=== PATIENT | female | born 1955 | race Caucasian/White ===

== ENCOUNTER 2017-02-04 06:25 | Inpatient (IN) | payer BC ==
[2017-02-04] MEDS ORDERED: ASPIRIN 325 MG TABLET PO ONE (06:42)
--- NOTE | 2017-02-04 06:44 | ER Document Report ---
ED Cardiac - General Chief Complaint: Chest Pain > 30 Stated Complaint: CHEST PAIN Time Seen by Provider: 02/04/17 06:38 Notes: The patient is a 72-[id number]-fmw-year-old female, past medical history hypertension , current smoker, cervical cancer in 2006 treated with radiation, presents with 2 hours of substernal chest pressure that started at rest. She said her left arm also feels "funny", but denies numbness or pain. Patient has never had chest pain like this before. She took 800 mg ibuprofen prior to arrival. She was also having mild shortness of breath during this episode, but this has improved. Denies fevers, cough, leg swelling, back pain, numbness, tingling, injury, abdominal pain, nausea or vomiting. TRAVEL OUTSIDE OF THE [place] IN LAST 30 DAYS: No - Related Data Allergies/Adverse Reactions: No Known Allergies Allergy (Unverified 02/04/17 06:28) Past Medical History - General Information source: Patient - Social History Smoking Status: Current Every Day Smoker Family History: Reviewed & Not Pertinent Patient has suicidal ideation: No Patient has homicidal ideation: No Renal/ Medical History: Denies: Hx Peritoneal Dialysis Review of Systems - Review of Systems Notes: REVIEW OF SYSTEMS: CONSTITUTIONAL: -fevers, -chills EENT: -eye pain, -difficulty swallowing, -nasal congestion CARDIOVASCULAR: +chest pain, -syncope. RESPIRATORY: -cough, +SOB GASTROINTESTINAL: -abdominal pain, -nausea, -vomiting, -diarrhea GENITOURINARY: -dysuria, -hematuria MUSCULOSKELETAL: -back pain, -neck pain SKIN: -rash or skin lesions. HEMATOLOGIC: -easy bruising or bleeding. LYMPHATIC: -swollen, enlarged glands. NEUROLOGICAL: -altered mental status or loss of consciousness, -headache, - neurologic symptoms PSYCHIATRIC: -anxiety, -depression. ALL OTHER SYSTEMS REVIEWED AND NEGATIVE. Physical Exam - Vital signs Vitals: Temp Pulse Resp BP Pulse Ox 97.5 F 86 26 H 180/70 H 98 02/04/17 06:31 02/04/17 06:31 02/04/17 06:31 02/04/17 06:31 02/04/17 06:31 - Notes Notes: PHYSICAL EXAMINATION: GENERAL: Well-appearing, well-nourished and in no acute distress. HEAD: Atraumatic, normocephalic. EYES: Pupils equal round and reactive to light, extraocular movements intact, sclera anicteric, conjunctiva are normal. ENT: nares patent, oropharynx clear without exudates. Moist mucous membranes. NECK: Normal range of motion, supple without lymphadenopathy LUNGS: Breath sounds clear to auscultation bilaterally and equal. No wheezes rales or rhonchi. HEART: Regular rate and rhythm with systolic ejection murmur ABDOMEN: Soft, nontender, normoactive bowel sounds. No guarding, no rebound. No masses appreciated. EXTREMITIES: Normal range of motion, no pitting or edema. No cyanosis. NEUROLOGICAL: Cranial nerves grossly intact. Normal speech, normal gait. Normal sensory and motor exams. PSYCH: Normal mood, normal affect. SKIN: Warm, Dry, normal turgor, no rashes or lesions noted. Course - Re-evaluation Re-evalutation: Patient's chest pain resolved when she was taken back to her room. While waiting for the results of the labs, her chest pain returned and quickly resolved after nitro. Her HEART score is 7 (1 for age, 2 for risk factors, 2 for concerning story, 2 for EKG). She is low risk for PE, but unable to PERC out due to age and tachypnea. Her d-dimer is negative, so PE is very unlikely. Symptoms not consistent with aortic dissection at this time. She does not have a primary care physician and has not seen a doctor in 10 years. 02/04/17 08:[address] Malik and will admit patient to Tele Obs. - Vital Signs Vital signs: Temp Pulse Resp BP Pulse Ox 97.5 F 86 16 153/76 H 97 02/04/17 06:31 02/04/17 06:31 02/04/17 07:00 02/04/17 06:44 02/04/17 07:00 - Laboratory Result Diagrams: 02/04/17 07:03 02/04/17 07:49 Laboratory results interpreted by me: 02/04/17 02/04/17 07:03 07:49 WBC 10.7 H Glucose 115 H CXR: NAD - Diagnostic Test Radiology reviewed: Image reviewed, Reports reviewed Radiology results interpreted by me: CXR: NAD - EKG Interpretation by Me EKG shows normal: Sinus rhythm, [place], Intervals, QRS Complexes Rate: Normal When compared to previous EKG there are: Previous EKG unavailable Additional EKG results interpreted by me: [address] depressions in lateral leads, no STEMI Discharge - Discharge Clinical Impression: Chest pain Qualifiers: Chest pain type: unspecified Qualified Code(s): R07.9 - Chest pain, unspecified Condition: Stable Disposition: ADMITTED OBSERVATION [facility] Admitted: Telemetry
[2017-02-04 07:12] LABS: ABSOLUTE BASOPHILS # (AUTO) 0.1 10^3/uL (0.0-0.2); ABSOLUTE EOSINOPHILS # (AUTO) 0.2 10^3/uL (0.0-0.6); ABSOLUTE LYMPHOCYTES (AUTO) 1.7 10^3/uL (0.5-4.7); ABSOLUTE MONOCYTES (AUTO) 0.8 10^3/uL (0.1-1.4); BASOPHILS % (AUTO) 0.7 % (0-2); EOSINOPHILS % (AUTO) 1.6 % (0-6); HEMATOCRIT 42.4 % (36.0-47.0); HGB HCT DIFFERENCE 2.6; LYMPHOCYTES % (AUTO) 15.4 % (13-45); MEAN CORPUSCULAR HEMOGLOBIN 32.1 pg (27.0-33.4); MEAN CORPUSCULAR HGB CONC 35.3 g/dL (32.0-36.0); MEAN CORPUSCULAR VOLUME 91 fl (80-97); MONOCYTES % (AUTO) 7.8 % (3-13); RED BLOOD COUNT 4.66 10^6/uL (3.72-5.28); SEGMENTED NEUTROPHILS % (AUTO) 74.5 % (42-78); WHITE BLOOD COUNT 10.7 10^3/uL (4.0-10.5)
--- NOTE | 2017-02-04 07:18 | RADIOLOGY REPORT (SQ) ---
EXAM DESCRIPTION: CHEST SINGLE VIEW COMPLETED DATE/TIME: 02/04/2017 7:08 am REASON FOR STUDY: SOB COMPARISON: None. EXAM PARAMETERS: NUMBER OF VIEWS: One view. TECHNIQUE: Single frontal radiographic view of the chest acquired. RADIATION DOSE: NA LIMITATIONS: None. FINDINGS: LUNGS AND PLEURA: No opacities, masses or pneumothorax. No pleural effusion. MEDIASTINUM AND HILAR STRUCTURES: No masses. Contour normal. HEART AND VASCULAR STRUCTURES: Heart normal in size. Normal vasculature. BONES: No acute findings. HARDWARE: None in the chest. OTHER: No other significant finding. IMPRESSION: NO ACUTE RADIOGRAPHIC FINDING IN THE CHEST. TECHNICAL DOCUMENTATION: JOB ID: [id number]
[2017-02-04] MEDS ORDERED: NITROGLYCERIN 0.4 MG/TAB 25 TAB/BOTTLE SL PRN ×2 (07:26→08:06)
[2017-02-04 08:17] LABS: ALANINE AMINOTRANSFERASE 23 U/L (9-52); ALBUMIN 4.3 g/dL (3.5-5.0); ALKALINE PHOSPHATASE 77 U/L (38-126); ANION GAP 11 (5-19); ASPARTATE AMINO TRANSFERASE 14 U/L (14-36); BILIRUBIN,DIRECT 0.4 mg/dL (0.0-0.4); BILIRUBIN,TOTAL 0.6 mg/dL (0.2-1.3); BLOOD UREA NITROGEN 17 mg/dL (7-20); CALCIUM 9.9 mg/dL (8.4-10.2); CARBON DIOXIDE 24 mmol/L (22-30); CHLORIDE 104 mmol/L (98-107); CREATINE KINASE 36 U/L (30-135); CREATININE RESULT 0.63 mg/dL (0.52-1.25); GLUCOSE 115 mg/dL (75-110); LIPASE 95.8 U/L (23-300); POTASSIUM 4.2 mmol/L (3.6-5.0); SODIUM 139.3 mmol/L (137-145)
[2017-02-04 08:32] LABS: TROPONIN I 0.041 ng/mL
[2017-02-04] MEDS ORDERED: ONDANSETRON HCL INJ/PF 4 MG/2 ML SDV IV PRN (09:32)
[2017-02-04] MEDS ORDERED: METOPROLOL TARTRATE 25 MG TABLET PO SCH (10:00)
[2017-02-04] MEDS ORDERED: ISOSORBIDE MONONITRATE 60 MG TAB.ER.24H PO SCH (10:00)
[2017-02-04] MEDS: ISOSORBIDE MONONITRATE 30 MG TAB.ER.24H PO SCH (11:07)
--- NOTE | 2017-02-04 11:43 | PDOC CONSULTATION ---
Consultation Consult Date: 02/04/17 Attending physician:: JV CONTEH Consult reason:: Chest pain History of Present Illness Admission Date/PCP: 02/04/17 09:32 Patient complains of: Chest pain History of Present Illness: The patient is a 12-qshq-xfj-year-old female, past medical history hypertension , current smoker, cervical cancer in 2006 treated with radiation, presents to the emergency department and subsequently admitted with 2 hours of substernal chest pressure that started at rest. She said her left arm also feels "funny", but denies numbness or pain. Patient has never had chest pain like this before. She took 800 mg ibuprofen prior to arrival. She was also having mild shortness of breath during this episode, but this has improved. Denies fevers, cough, leg swelling, back pain, numbness, tingling, injury, abdominal pain, nausea or vomiting. Patient denied any prior history of myocardial infarction, angina, congestive heart failure or any prior heart problem. Patient denied any history of blood clots in the legs are in the lungs. Past Medical History Malignancy Medical History: Reports: Cervical Cancer - Treated with radiation Psychiatric Medical History: Reports: Tobacco Dependency Past Surgical History Past Surgical History: Reports: Other - Cervical cancer treated with radiation Social History Information Source: Patient Smoking Status: Current Every Day Smoker - Currently smokes 2 packs or more per day - Advance Directive Resuscitation Status: Full Code Surrogate healthcare decision maker:: Patient's neighbor and good friend. Name been listed in the chart Family History Family History: Reviewed & Not Pertinent Parental Family History Reviewed: Yes Children Family History Reviewed: Yes Sibling(s) Family History Reviewed.: Yes - Coronary artery disease in grandmother but not in the immediate family. Medication/Allergy Home Medications: Aspirin [Aspirin 81 mg Chewable Tablet] 81 mg PO DAILY tab.chew 02/07/17 Atorvastatin Calcium [Lipitor 80 mg Tablet] 80 mg PO QHS #30 tablet 02/07/17 Metoprolol Succinate [Toprol Xl 25 mg Tab.sr] 25 mg PO Q12 #60 tab.sr.24h Nitroglycerin [Nitrostat 0.4 mg (1/150 Gr) Tabs 25/Bottle] 1 tab SL Q5MP PRN #1 bottle 02/07/17 Ramipril [Altace 1.25 mg Capsule] 1.25 mg PO DAILY #30 capsule 02/07/17 Ranolazine [Ranexa 500 mg Tab.sr] 1,000 mg PO Q12 #60 tab.sr.12h 02/07/17 Allergies/Adverse Reactions: No Known Allergies Allergy (Unverified 02/04/17 06:28) Review of Systems Review of Systems: Please see history of present illness and past medical history as wall. Constitutional: No fever or chills reported. Head : No recent chronic headaches, recent head injury. Eyes: No recent eye pain, diplopia, redness, discharge, acute visual changes. Ears: No recent chronic ear pain, acute hearing loss, ear discharge. Oral cavity: No recent ulcerations, bleeding, oral cavity discomfort. Neck: No recent acute neck pain reported. Hematologic: No recent easy bruising or bleeding or hematologic malignancy reported. Lymphatic: No recent lymphatic malignancy, chronic lymphadenopathy reported yet Cardiovascular system review: See history of present illness. Respiratory system review: Chronic cough secondary to smoking but no hemoptysis , blood clots in the lungs reported. Mild Shortness of breath on exertion Gastrointestinal system review: Negative for any recent acute or chronic abdominal pain, hematemesis, melena, recent change in bowel habits. Genitourinary system review: No recent acute or chronic hematuria, flank pain, UTI etc. reported. Skin system review: Negative for any recent abnormal bruising, no rash, no pruritus reported. Neurologic: No prior history of strokes, mini strokes, seizure disorder. Psychologic: No history of major psychosis or major depression reported. Musculoskeletal: Minor aches and pains reported. No acute joint swelling reported. Endocrine: No recent polyuria, polydipsia, recent heat or cold intolerance. Physical Exam Vital Signs: Temp Pulse Resp BP Pulse Ox 97.4 F 89 19 98/62 L 97 02/04/17 10:43 02/04/17 10:43 02/04/17 10:43 02/04/17 10:43 02/04/17 10:43 Exam: GENERAL: well-nourished and in no acute distress. Alert and oriented x3 HEAD: Atraumatic, normocephalic. EYES: Pupils equal round and reactive to light, extraocular movements intact, sclera anicteric, conjunctiva are normal. ENT: TMs normal, nares patent, oropharynx clear without exudates. Moist mucous membranes. No oral ulcerations or bleeding gums noted NECK: supple without lymphadenopathy. Trachea is central. No cervical or axillary lymphadenopathy noted. Carotids are 2+, JVD WNL LUNGS: Respiration seems nonlabored, no significant accessory muscle action noted. Breath sounds clear to auscultation bilaterally and equal noted. No wheezes rales or rhonchi noted. No significant dullness noted on percussion. CHEST: Palpation of the chest wall shows no significant chest wall tenderness. No other significant abnormalities noted. 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 ABDOMEN: Soft, no significant tenderness appreciated, normoactive bowel sounds. No guarding, no rebound. No rigidity noted . No masses appreciated. EXTREMITIES: Pedal pulses are 1-2+, no calf tenderness noted. No clubbing or cyanosis. Negative pedal edema noted NEUROLOGICAL: Focused neurological exam showed no significant neurologic deficit. Normal speech, no focal weakness appreciated. PSYCH: Normal mood, normal affect. Judgment and insight within normal limits. SKIN: No significant ecchymosis, rash, ulcerations or signs of pruritus noted. MUSCULOSKELETAL EXAM: No significant joint swelling noted. Results EKG Comments: Sinus rhythm, minor nonspecific T-wave inversion noted in V2 Impressions: Chest X-Ray 02/04/17 06:41 IMPRESSION: NO ACUTE RADIOGRAPHIC FINDING IN THE CHEST. Assessment & Plan - Diagnosis (1) Chest pain Qualifiers: Chest pain type: unspecified Qualified Code(s): R07.9 - Chest pain, unspecified Is this a current diagnosis for this admission?: Yes (2) COPD (chronic obstructive pulmonary disease) Qualifiers: COPD type: unspecified COPD Qualified Code(s): J44.9 - Chronic obstructive pulmonary disease, unspecified Is this a current diagnosis for this admission?: Yes (3) Tobacco abuse Is this a current diagnosis for this admission?: Yes (4) Gastroesophageal reflux Qualifiers: Esophagitis presence: esophagitis presence not specified Qualified Code(s): K21.9 - Gastro-esophageal reflux disease without esophagitis Is this a current diagnosis for this admission?: Yes - Notes Notes: Chest pain: Patient has some typical and atypical features of chest pain. Cardiac enzymes so far has been negative. Electrocardiogram did not show any definitive ST segment changes. Multiple differential diagnoses exist in this patient. In descending order of probability this includes underlying coronary artery disease, gastroesophageal reflux, musculoskeletal pain, referred pain from elsewhere, anxiety panic disorder etc.Patient has significant cardiac risk factors, which indicates that there is a intermediate probability of chest discomfort coming from underlying CAD. Feel that it would need to be evaluated further. Discussed evaluation to assess this. In this regard risk benefits of nuclear stress test and other alternative processes were discussed in detail. The patient prefers to undergo nuclear stress test. The small risk of radiation , myocardial infarction, , cardiac arrhythmias, respiratory distress etc. were discussed. Patient understood the risks and gave informed consent. Nuclear stress test was therefore scheduled. For risk evaluation, patient is also being scheduled for a 2-D echocardiogram. Patient questions were answered. COPD patient encouraged to avoid first-hand. Patient also advised to avoid environmental pollutants. Patient to use bronchodilator and steroid therapy as has been prescribed by PMD and other specialists. Tobacco abuse: Patient has history of chronic smoking. Discussed detrimental effect of chronic smoking including worsening COPD, increased risk of cardiovascular events, cerebrovascular events, cancer and multiple other side effects of smoking. The benefits of smoking cessation discussed. Patient unwilling to give acommitment to quit. Patient informed that we'll be happy to help should pt decide to quit. Continue nicotine patch while inpatient. Patient seems to have this condition. Gastroesophageal reflux: Weigh loss and treatment of sleep apnea if present and when treated tends to help this condition. Recommend small meals, avoid eating within 3 hours of bedtime, avoid other food substances which had led to reflux in the past. Proton pump inhibitors and other antacids are recommended. - Time Time Spent: 50 to 70 Minutes - CODE STATUS was discussed, patient remains full code. Surrogate decision-maker unchanged. Multiple medical problems were addressed. More than 50% of the time spent coordinating care, discussing management plans with involved caregivers. Management plans discussed with involved personnels. Medical decision making was of high complexity, patient' s has multiple comorbidities. Medications reviewed and adjusted accordingly: Yes
[2017-02-04] MEDS ORDERED: ENOXAPARIN SODIUM INJ 40 MG/0.4 ML DISP.SYRIN SUBCUT ONE (12:00)
[2017-02-04 12:27] LABS: CHOLESTEROL 176.24 mg/dL (0-200); Direct HDL 33 mg/dL (>40); TRIGLYCERIDES 233 mg/dL (<150)
[2017-02-04 12:34] LABS: CREATINE KINASE MB 1.07 ng/mL (<4.55)
[2017-02-04 12:38] LABS: DIRECT LDL 106 mg/dL (<100); TROPONIN I 0.15 ng/mL
[2017-02-04 12:40] LABS: VLDL CHOLESTEROL 46.6 mg/dL (10-31)
[2017-02-04] MEDS ORDERED: CLOPIDOGREL BISULFATE 75 MG TABLET PO ONE (14:00)
--- NOTE | 2017-02-04 14:00 | PDOC H&P ---
History of Present Illness Admission Date/PCP: 02/04/17 09:32 no PCP Patient complains of: chest pain History of Present Illness: presents to the ED from home with sudden onset of substernal constant chest pain until given SL NTG, described as a "heaviness in the center of my chest" with asct'ed left arm "weirdness like a tingling but stranger" and global dull aching constant nonradiating CRUZ and mild, transient SOA. she denies nausea, vomiting, vision or hearing changes, orthopnea, PND, weight gain or loss, cough with phlegm, fevers/chills, swelling of her feet or ankles, recent travel, sedentary lifestyle, heartburn or GERD. She's had several similar episodes over the last few months but "never this intense" thus prompting visit to the ED. She had a negative stress test "many years ago" for unrelated symptoms so no prior cardiac disease she is aware of, takes no meds for chronic conditions, has no idea of her cholesterol levels, doesn't take prophylactic ASA and no first degree relative with CAD. Her risk factors include elevated BMI and heavy tobacco use. eval in the ED shows nonspecific, nondiagnostic ST flattening, we have no old for comparison, and indeterminate initial troponin that fails to reach the cut off for NSTEMI by our scale giving her a MARS score of 2. we were asked to admit for further eval and management Past Medical History Cardiac Medical History: Reports: None Pulmonary Medical History: Reports: Pneumonia - WITH PLURISY Malignancy Medical History: Reports: Cervical Cancer - Treated with radiation Psychiatric Medical History: Reports: Tobacco Dependency Past Surgical History Past Surgical History: Reports: None, Other - Cervical cancer treated with radiation Social History Information Source: Patient Smoking Status: Current Every Day Smoker - Currently smokes 2 packs or more per day Cigarettes Packs Per Day: 2 Frequency of Alcohol Use: Rare Hx Recreational Drug Use: No Hx Prescription Drug Abuse: No - Advance Directive Resuscitation Status: Full Code Family History Family History: Reviewed & Not Pertinent. denies: CAD, CVA Parental Family History Reviewed: Yes Children Family History Reviewed: Yes Sibling(s) Family History Reviewed.: Yes Medication/Allergy Home Medications: No Home Medications 02/04/17 Allergies/Adverse Reactions: No Known Allergies Allergy (Unverified 02/04/17 06:28) Review of Systems All systems: reviewed and no additional remarkable complaints except as stated - all systems reviewed, see HPI, remaining systems negative Physical Exam Vital Signs: Temp Pulse Resp BP Pulse Ox 97.4 F 89 19 98/62 L 97 02/04/17 10:43 02/04/17 10:43 02/04/17 10:43 02/04/17 10:43 02/04/17 10:43 General appearance: PRESENT: no acute distress, obese, well-developed, well- nourished Head exam: PRESENT: atraumatic, normocephalic Eye exam: PRESENT: EOMI. ABSENT: conjunctival injection, scleral icterus Mouth exam: PRESENT: moist, neck supple Neck exam: PRESENT: full ROM. ABSENT: JVD, lymphadenopathy Respiratory exam: PRESENT: clear to auscultation sohan. ABSENT: accessory muscle use Cardiovascular exam: PRESENT: RRR. ABSENT: systolic murmur Pulses: PRESENT: normal radial pulses, normal dorsalis pedis pul Vascular exam: PRESENT: normal capillary refill GI/Abdominal exam: PRESENT: normal bowel sounds, soft. ABSENT: tenderness Extremities exam: ABSENT: calf tenderness, pedal edema Musculoskeletal exam: PRESENT: ambulatory, full ROM Neurological exam: PRESENT: alert, awake, oriented to person, oriented to place , oriented to time, oriented to situation Psychiatric exam: PRESENT: appropriate affect, normal mood Skin exam: PRESENT: dry, warm. ABSENT: rash Results Laboratory Results: 02/04/17 11:52 Triglycerides 233 H Cholesterol 176.24 LDL Cholesterol Direct 106 H VLDL Cholesterol 46.6 H HDL Cholesterol 33 L 02/04/17 11:52 CK-MB (CK-2) 1.07 Troponin I 0.150 EKG Comments: NSR with nonspecific ST flattening lateral leads and TWI V2 Impressions: Chest X-Ray 02/04/17 06:41 IMPRESSION: NO ACUTE RADIOGRAPHIC FINDING IN THE CHEST. Status: Image reviewed by me - agree with rads Assessment & Plan - Diagnosis (1) Chest pain Qualifiers: Chest pain type: unspecified Qualified Code(s): R07.9 - Chest pain, unspecified Is this a current diagnosis for this admission?: YesPlan: unclear etiology but worthy of admission for telemetry monitoring and serial cardiac enzymes and ecgs with cardiology consult given the indeterminate troponin and risk factors. will empirically treat with ASA and nitro, hold beta blockers in anticipation of nuclear stress test in the morning. further risk stratification per clinical course. ck lipids and monitor BP. (2) Tobacco abuse Is this a current diagnosis for this admission?: YesPlan: tobacco cessation counseling; nicoderm replacement once she completes her stress test. - Time Time Spent: 50 to 70 Minutes Medications reviewed and adjusted accordingly: Yes Anticipated discharge: Home Within: within 24 hours
[2017-02-04] MEDS ORDERED: ENOXAPARIN SODIUM INJ 60 MG/0.6 ML DISP.SYRIN SUBCUT ONE (15:00)
[2017-02-04] MEDS: LANSOPRAZOLE 30 MG TAB.RAP.DR PO SCH (17:00)
[2017-02-04] MEDS: ACETAMINOPHEN 325 MG TABLET PO PRN ×2 (17:01→22:54)
--- NOTE | 2017-02-04 17:40 | EKG REPORT ---
SEVERITY:- ABNORMAL ECG - SINUS RHYTHM CONSIDER ANTEROSEPTAL INFARCT : Confirmed by: Arlene Mendez MD 04-Feb-2017 17:38:43
--- NOTE | 2017-02-04 17:40 | EKG REPORT ---
SEVERITY:- NORMAL ECG - SINUS RHYTHM : Confirmed by: Arlene Mendez MD 04-Feb-2017 17:39:10
[2017-02-04 18:47] LABS: CREATINE KINASE MB 1.87 ng/mL (<4.55); TROPONIN I 0.259 ng/mL
--- NOTE | 2017-02-04 19:48 | XCELERA REPORT ---
[address] [address] Transthoracic Echocardiogram Report Name: ENRIQUE FARAH Age: 61 yrs Gender: Female : 1955 Patient Status: Inpatient Patient Location: [id number]\S\401\S\A Study Date: 02/04/2017 03:20 PM Height: 66 in Weight: 214 lb BSA: 2.1 m2 Procedure: A complete two-dimensional transthoracic echocardiogram was performed (2D, M-mode, spectral and color flow Doppler). The study was technically difficult with many images being suboptimal in quality. Reason For Study: CP Ordering Physician: ALMA WILKINS Performed By: Laverne Costa Interpretation Summary The study was technically difficult with many images being suboptimal in quality. The left ventricular ejection fraction is normal. Doppler measurements suggest pseudonormalized left ventricular relaxation, which is associated with grade II/IV or mild to moderate diastolic dysfunction There is mild concentric left ventricular hypertrophy. The left ventricle is grossly normal size. Wall motion cannot be accurately commented on, but no definite regional wall motion abnormalities noted. The right ventricular systolic function is normal. The right ventricle is grossly normal size. The left atrium is mildly dilated. The right atrium is normal in size There is a trace to mild amount of mitral regurgitation There is mild mitral stenosis There is a peak gradient of 25 mm of Hg. There is mild aortic stenosis No aortic regurgitation is present. There is a trace or physiologic amount of tricuspid regurgitation Tricuspid regurgitation jet envelope not well defined to measure RV systolic pressure accurately. The aortic root is not well visualized but is probably normal size. The inferior vena cava appeared normal and decreased > 50% with respiration (RAP 5-10 mmHg) There is no pericardial effusion. MMode/2D Measurements \T\ Calculations RVDd: 2.7 cm LVIDd: 4.5 cm FS: 49.4 % Ao root diam: 2.9 cm IVSd: 1.1 cm LVIDs: 2.3 cm EDV(Teich): 90.8 ml LVPWd: 1.1 cm ESV(Teich): 17.3 ml Ao root area: 6.4 cm2 EF(Teich): 80.9 % LA dimension: 4.2 cm LVOT diam: 2.1 cm LVOT area: 3.6 cm2 Doppler Measurements \T\ Calculations MV E max sari: MV V2 max: MV P1/2t max sari: Ao V2 max: 133.8 cm/sec 178.1 cm/sec 133.8 cm/sec 249.8 cm/sec MV A max sari: MV max PG: MV P1/2t: 101.1 msec Ao max P.1 cm/sec 12.7 mmHg MVA(P1/2t): 2.2 cm2 25.1 mmHg MV E/A: 0.90 MV V2 mean: MV dec slope: Ao V2 mean: 121.6 cm/sec 387.6 cm/sec2 181.4 cm/sec MV mean PG: Ao mean P.5 mmHg 13.9 mmHg MV V2 VTI: Ao V2 VTI: 60.8 cm 46.0 cm MVA(VTI): 2.1 cm2 IGNACIO(I,D): 2.8 cm2 IGNACIO(V,D): 2.3 cm2 LV V1 max PG: SV(LVOT): PA V2 max: TR max sari: 10.8 mmHg 127.0 ml 117.5 cm/sec 206.3 cm/sec LV V1 mean PG: PA max P.5 mmHg TR max P.1 mmHg 17.0 mmHg LV V1 max: 164.5 cm/sec LV V1 mean: 99.4 cm/sec LV V1 VTI: 35.7 cm Left Ventricle The left ventricle is grossly normal size. There is mild concentric left ventricular hypertrophy. The left ventricular ejection fraction is normal. Doppler measurements suggest pseudonormalized left ventricular relaxation, which is associated with grade II/IV or mild to moderate diastolic dysfunction. Wall motion cannot be accurately commented on, but no definite regional wall motion abnormalities noted. Right Ventricle The right ventricle is grossly normal size. The right ventricle appears to be hypertrophied. The right ventricular systolic function is normal. Atria The right atrium is normal in size. The left atrium is mildly dilated. Interarterial septum not well visualized and not well dopplered. Cannot comment on ASD/PFO presence. Mitral Valve There is moderate to severe mitral leaflet calcification. There is mild mitral stenosis. There is a trace to mild amount of mitral regurgitation. Aortic Valve The aortic valve is not well visualized secondary to technical limitations. There is mild aortic stenosis. There is a peak gradient of 25 mm of Hg. No aortic regurgitation is present. Tricuspid Valve The tricuspid valve is not well visualized, but is grossly normal. There is no tricuspid stenosis. There is a trace or physiologic amount of tricuspid regurgitation. Tricuspid regurgitation jet envelope not well defined to measure RV systolic pressure accurately. Pulmonic Valve The pulmonic valve is not well visualized. Great Vessels The aortic root is not well visualized but is probably normal size. The inferior vena cava appeared normal and decreased > 50% with respiration (RAP 5-10 mmHg). Effusions There is no pericardial effusion. : ALMA WILKINS > Alma Wilkins
--- NOTE | 2017-02-04 21:29 | Progress Note ---
Provider Note Provider Note: February 04, 2017: Gradual increase in patient's troponin level. Shortly after the beginning of the evening shift, I spoke with patient's floor nurse. She stated patient had been having some vague left shoulder discomfort. I subsequently discussed the matter by phone with Dr. Mckeon, who had already seen the patient. He stated he would be going to the patient's bedside and reevaluating her. At 7:58 PM, Dr. Mckeon called from patient's bedside. He stated that patient had taken a single sublingual nitroglycerin and was now discomfort free. He had reviewed her stat EKG, with no worrisome changes noted. He discussed options with patient, including possible transfer to a tertiary center. She is comfortable being at our facility at this point in time, as is Dr. Mckeon. Plans are to repeat her troponin in several hours. Dr. Mckeon stated that should patient develop chest pain, and/or troponin greater than 0.4, to consider transfer to a tertiary center.
[2017-02-04] MEDS ORDERED: ENOXAPARIN SODIUM INJ 100 MG/1 ML DISP.SYRIN SUBCUT SCH (22:00)
[2017-02-04] MEDS: ATORVASTATIN CALCIUM 80 MG TABLET PO SCH (22:55)
[2017-02-04] MEDS: RANOLAZINE 500 MG TAB.SR.12H PO SCH (22:56)
[2017-02-04] MEDS: ENOXAPARIN SODIUM INJ 100 MG/1 ML DISP.SYRIN SUBCUT SCH (22:57)
[2017-02-05] MEDS: ACETAMINOPHEN 325 MG TABLET PO PRN ×3 (03:35→18:03)
[2017-02-05 04:46] LABS: CHOLESTEROL 164.91 mg/dL (0-200); Direct HDL 30 mg/dL (>40); TRIGLYCERIDES 238 mg/dL (<150)
[2017-02-05 04:57] LABS: DIRECT LDL 101 mg/dL (<100)
[2017-02-05 05:01] LABS: VLDL CHOLESTEROL 47.6 mg/dL (10-31)
[2017-02-05] MEDS: LANSOPRAZOLE 30 MG TAB.RAP.DR PO SCH ×2 (06:02→18:04)
[2017-02-05] MEDS: ISOSORBIDE MONONITRATE 30 MG TAB.ER.24H PO SCH (09:20)
[2017-02-05] MEDS: CLOPIDOGREL BISULFATE 75 MG TABLET PO SCH (09:21)
[2017-02-05] MEDS: RANOLAZINE 500 MG TAB.SR.12H PO SCH ×2 (09:21→21:07)
[2017-02-05] MEDS: ENOXAPARIN SODIUM INJ 100 MG/1 ML DISP.SYRIN SUBCUT SCH ×2 (09:22→21:06)
[2017-02-05] MEDS ORDERED: ASPIRIN 325 MG TABLET, ENT COATED PO SCH (10:00)
[2017-02-05] MEDS ORDERED: ENOXAPARIN SODIUM INJ 40 MG/0.4 ML DISP.SYRIN SUBCUT SCH (10:00)
[2017-02-05 10:30] LABS: APPEARANCE,URINE CLEAR; BILIRUBIN,URINE NEGATIVE (NEGATIVE); GLUCOSE, URINE NEGATIVE (NEGATIVE); KETONES,URINE NEGATIVE (NEGATIVE); LEUKOCYTE ESTERASE,URINE NEGATIVE (NEGATIVE); NITRITE,URINE NEGATIVE (NEGATIVE); PROTEIN,URINE NEGATIVE (NEGATIVE); URINE SPECIFIC GRAVITY 1.002; UROBILINOGEN,URINE NEGATIVE mg/dL (<2.0)
--- NOTE | 2017-02-05 11:15 | RADIOLOGY REPORT (SQ) ---
EXAM DESCRIPTION: CTA CHEST COMPLETED DATE/TIME: 02/05/2017 10:56 am REASON FOR STUDY: chest pain COMPARISON: Recent chest radiographs. TECHNIQUE: CT scan of the chest performed using helical scanning technique with dynamic intravenous contrast injection. Images reviewed with lung, soft tissue and bone windows. Reconstructed coronal and sagittal MPR images reviewed. Additional 3 dimensional post-processing performed to develop Maximal Intensity Projection images (NE P). All images stored on PACS. All CT scanners at this facility use dose modulation, iterative reconstruction, and/or weight based d osing when appropriate to reduce radiation dose to as low as reasonably achievable (ALARA). [facility]: Dose Right [facility]: CareDose [facility]: Dose Right [facility]: Teradose 4D [facility]: piSociety CONTRAST TYPE AND DOSE: contrast/concentration: Isovue 370.00 mg/ml; Total Contrast Delivered: 74.0 ml; Total Saline Delivered: 110.1 ml RENAL FUNCTION: Creatinine 0.6 RADIATION DOSE: Up-to-date CT equipment and radiation dose reduction techniques were employed. CTDIv ol: 9.4 - 15.6 mGy. DLP: 646 mGy-cm. . LIMITATIONS: None. FINDINGS: LUNGS AND PLEURA: Mild apical emphysema. Lungs otherwise clear. No pleural disease. AORTA AND GREAT VESSELS: Limited evaluation due to phase of contrast. No aortic aneurysm. Mild athe rosclerotic plaque. No gross dissection. HEART: Coronary and valvular calcification. No pericardial effusion. Relatively normal size. PULMONARY ARTERIES: No emboli visualized in the main pulmonary arteries or the segmental branches. HILAR AND MEDIASTINAL STRUCTURES: Small hiatal hernia. No mediastinal adenopathy or mass. HARDWARE: None in the chest. UPPER ABDOMEN: Incompletely evaluated cholelithiasis. Slight nodular thickening of the left adrenal, particularly lateral limb. Low density suggests adenoma. Hounsfield units are less than 5. THYROID AND OTHER SOFT TISSUES: No masses. No adenopathy. BONES: No acute or significant finding. 3D MIPS: Confirm above findings. OTHER: No other significant finding. IMPRESSION: 1. No acute or suspicious thoracic findings. No pulmonary embolus or gross aortic aneur ysm or dissection. 2. Cholelithiasis. TECHNICAL DOCUMENTATION: JOB ID: [id number] Quality ID # [id number]: Final reports with documentation of one or more dose reduction techniques (e.g., Au tomated exposure control, adjustment of the mA and/or kV according to patient size, use of iterative reconstruction technique) 2010 [employer]- All Rights Reserved
[2017-02-05] MEDS: METOPROLOL SUCCINATE 25 MG TAB.SR.24H PO SCH ×2 (11:23→21:05)
--- NOTE | 2017-02-05 12:27 | PDOC PROGRESS REPORT ---
Subjective Progress Note for:: 02/05/17 Subjective:: reason for visit: chest pain, likely NSTEMI, tob abuse hospital course: presents to the ED from home with sudden onset of substernal constant chest pain until given SL NTG, described as a "heaviness in the center of my chest" with asct'ed left arm "weirdness like a tingling but stranger" and global dull aching constant nonradiating CRUZ and mild, transient SOA. she denies nausea, vomiting, vision or hearing changes, orthopnea, PND, weight gain or loss, cough with phlegm, fevers/chills, swelling of her feet or ankles, recent travel, sedentary lifestyle, heartburn or GERD. She's had several similar episodes over the last few months but "never this intense" thus prompting visit to the ED. She had a negative stress test "many years ago" for unrelated symptoms so no prior cardiac disease she is aware of, takes no meds for chronic conditions, has no idea of her cholesterol levels, doesn't take prophylactic ASA and no first degree relative with CAD. Her risk factors include elevated BMI and heavy tobacco use. eval in the ED shows nonspecific, nondiagnostic ST flattening, we have no old for comparison, and indeterminate initial troponin that fails to reach the cut off for NSTEMI by our scale giving her a MARS score of 2. we were asked to admit for further eval and management. repeat troponin trended up and beyond upper limit of normal and has plateaued while her symptoms remain vague and waxing and waning but no ousmane chest pain, palpitations, orthopnea, PND. her left arm "funny feeling" also seems to come and go and is currentlly resolved. dr tapia ordered echo and CTA chest which show normal EF, 2/4 DD, mild conc LVH, mild LAE, trace MR and mild stenosis, mild aortic stenosis and ct chest shows mild apical emphysema, coronary calcifications but no obvious dissection or aneurysm and incidental note made of cholelithiasis and adrenal adenoma. started empiric treatment for NSTEMI with full dose lovenox, plavix and high dose statin. denies chest pain, palpitations, n/v/d, arm/jaw pain. ROS: all systems reviewed, as noted, remaining systems negative Physical Exam Vital Signs: Temp Pulse Resp BP Pulse Ox 97.5 F 66 16 135/56 H 94 02/05/17 07:43 02/05/17 07:43 02/05/17 07:43 02/05/17 07:43 02/05/17 07:43 Intake & Output 02/04/17 02/05/17 02/06/17 06:59 06:59 06:59 Intake Total 1770 Output Total 501 Balance 1269 Weight 99.2 kg General appearance: PRESENT: no acute distress, obese, well-developed, well- nourished Head exam: PRESENT: atraumatic, normocephalic Eye exam: PRESENT: EOMI. ABSENT: conjunctival injection, scleral icterus Mouth exam: PRESENT: moist, neck supple Neck exam: PRESENT: full ROM. ABSENT: JVD, lymphadenopathy Respiratory exam: PRESENT: clear to auscultation sohan. ABSENT: accessory muscle use Cardiovascular exam: PRESENT: RRR. ABSENT: systolic murmur Pulses: PRESENT: normal radial pulses, normal dorsalis pedis pul Vascular exam: PRESENT: normal capillary refill GI/Abdominal exam: PRESENT: normal bowel sounds, soft. ABSENT: tenderness Extremities exam: ABSENT: calf tenderness, pedal edema Musculoskeletal exam: PRESENT: ambulatory, full ROM Neurological exam: PRESENT: alert, awake, oriented to person, oriented to place , oriented to time, oriented to situation Psychiatric exam: PRESENT: appropriate affect, normal mood Skin exam: PRESENT: dry, warm. ABSENT: rash Results Laboratory Results: 02/04/17 02/05/17 02/05/17 11:52 04:02 08:50 Triglycerides 233 H 238 H Cholesterol 176.24 164.91 LDL Cholesterol Direct 106 H 101 H VLDL Cholesterol 46.6 H 47.6 H HDL Cholesterol 33 L 30 L Urine Color STRAW Urine Appearance CLEAR Urine pH 6.0 Ur Specific Check 1.002 Urine Protein NEGATIVE Urine Glucose (UA) NEGATIVE Urine Ketones NEGATIVE Urine Blood NEGATIVE Urine Nitrite NEGATIVE Ur Leukocyte Esterase NEGATIVE Urine WBC (Auto) 2 02/04/17 02/04/17 02/04/17 11:52 17:58 22:03 CK-MB (CK-2) 1.07 1.87 Troponin I 0.150 0.259 0.225 02/05/17 04:02 CK-MB (CK-2) Troponin I 0.227 Impressions: Chest X-Ray 02/04/17 06:41 IMPRESSION: NO ACUTE RADIOGRAPHIC FINDING IN THE CHEST. Chest/Abdomen CTA 02/05/17 09:22 IMPRESSION: 1. No acute or suspicious thoracic findings. No pulmonary embolus or gross aortic aneurysm or dissection. 2. Cholelithiasis. Status: Imported from PACS Assessment & Plan - Diagnosis (1) Chest pain Qualifiers: Chest pain type: unspecified Qualified Code(s): R07.9 - Chest pain, unspecified Is this a current diagnosis for this admission?: Yes (2) Tobacco abuse Is this a current diagnosis for this admission?: Yes (3) NSTEMI (non-ST elevated myocardial infarction) Is this a current diagnosis for this admission?: YesPlan: new: dr tapia guiding her care and my discussions with her for >30mins regarding conservative medical mgt vs invasive intervention and she has decided for the more conservative approach, she is fearful of the procedure and "would like to give the medicines a chance to work" fully understanding and accepting of the risk of sudden cardiac , AMI, heart failure, etc continue to optimize Rx management. per my conversation with dr tapia, he will perform stress test in am if her troponin trending down, otherwise will need cath if trending up. (4) Hyperlipidemia Is this a current diagnosis for this admission?: YesPlan: new; high dose statin (5) Cholelithiasis Qualifiers: Cholelithiasis location: gallbladder Cholecystitis acuity: chronic Biliary obstruction: without biliary obstruction Is this a current diagnosis for this admission?: YesPlan: I do not think this is contributing to her symptoms but probably warrants further investigation once her cardiac status stabilized (6) Adrenal adenoma Qualifiers: Laterality: right Qualified Code(s): D35.01 - Benign neoplasm of right adrenal gland Is this a current diagnosis for this admission?: YesPlan: outpt monitoring (7) COPD (chronic obstructive pulmonary disease) Qualifiers: COPD type: unspecified COPD Qualified Code(s): J44.9 - Chronic obstructive pulmonary disease, unspecified Is this a current diagnosis for this admission?: YesPlan: new: tobacco cessation (8) Gastroesophageal reflux Qualifiers: Esophagitis presence: esophagitis presence not specified Qualified Code(s): K21.9 - Gastro-esophageal reflux disease without esophagitis Is this a current diagnosis for this admission?: YesPlan: diet restrictions, lifestyle changes - Time Time Spent with patient: 25-34 minutes Medications reviewed and adjusted accordingly: Yes - Inpatient Certification Based on my medical assessment, after consideration of the patient's comorbidities, presenting symptoms, or acuity I expect that the services needed warrant INPATIENT care.: Yes I certify that my determination is in accordance with my understanding of Medicare's requirements for reasonable and necessary INPATIENT services [42 CFR 412.3e].: Yes Medical Necessity: Significant Comorbidiites Make Outpatient Treatment Too Risky , Need Close Monitoring Due to Risk of Patient Decompensation, Need For Continuous Telemetry Monitoring, Risk of Complication if Not Cared For in Hospital
--- NOTE | 2017-02-05 12:28 | PDOC PROGRESS REPORT ---
Subjective Progress Note for:: 02/05/17 Subjective:: Patient seems to be doing better with gradual improvement. Patient denied since last night any recurrence of chest arm or neck discomfort. Patient denying any PND, orthopnea. Patient denied any sustained palpitations, dizziness, syncope, near syncope. Patient denying any fever chills. Patient denying any other significant discomfort. Patient is maintaining sinus rhythm. Patient has ambulated to the bathroom without any difficulty. Patient was encouraged to ambulate in the hallway today and report any chest discomfort if she has. Review of systems: Rest review of systems negative. Medications: Medications have been reviewed. Physical Exam Vital Signs: Temp Pulse Resp BP Pulse Ox 97.5 F 66 16 135/56 H 94 02/05/17 07:43 02/05/17 07:43 02/05/17 07:43 02/05/17 07:43 02/05/17 07:43 Intake & Output 02/04/17 02/05/17 02/06/17 06:59 06:59 06:59 Intake Total 1770 Output Total 501 Balance 1269 Weight 99.2 kg Exam: GENERAL: well-nourished and in no acute distress. Alert and oriented x3 HEAD: Atraumatic, normocephalic. EYES: Pupils equal round and reactive to light, extraocular movements intact, sclera anicteric, conjunctiva are normal. ENT: TMs normal, nares patent, oropharynx clear without exudates. Moist mucous membranes. No oral ulcerations or bleeding gums noted NECK: supple without lymphadenopathy. Trachea is central. No cervical or axillary lymphadenopathy noted. Carotids are 2+, JVD WNL LUNGS: Respiration seems nonlabored, no significant accessory muscle action noted. Breath sounds clear to auscultation bilaterally and equal noted. No wheezes rales or rhonchi noted. No significant dullness noted on percussion. CHEST: Palpation of the chest wall shows no significant chest wall tenderness. No other significant abnormalities noted. 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 ABDOMEN: Soft, no significant tenderness appreciated, normoactive bowel sounds. No guarding, no rebound. No rigidity noted . No masses appreciated. EXTREMITIES: Pedal pulses are 1-2+, no calf tenderness noted. No clubbing or cyanosis.trace to 1+ pedal edema noted NEUROLOGICAL: Focused neurological exam showed no significant neurologic deficit. Normal speech, no focal weakness appreciated. PSYCH: Normal mood, normal affect. Judgment and insight within normal limits. SKIN: No significant ecchymosis, rash, ulcerations or signs of pruritus noted. MUSCULOSKELETAL EXAM: No significant joint swelling noted. Results Laboratory Results: 02/04/17 02/05/17 02/05/17 11:52 04:02 08:50 Triglycerides 233 H 238 H Cholesterol 176.24 164.91 LDL Cholesterol Direct 106 H 101 H VLDL Cholesterol 46.6 H 47.6 H HDL Cholesterol 33 L 30 L Urine Color STRAW Urine Appearance CLEAR Urine pH 6.0 Ur Specific [place] 1.002 Urine Protein NEGATIVE Urine Glucose (UA) NEGATIVE Urine Ketones NEGATIVE Urine Blood NEGATIVE Urine Nitrite NEGATIVE Ur Leukocyte Esterase NEGATIVE Urine WBC (Auto) 2 02/04/17 02/04/17 02/04/17 11:52 17:58 22:03 CK-MB (CK-2) 1.07 1.87 Troponin I 0.150 0.259 0.225 02/05/17 04:02 CK-MB (CK-2) Troponin I 0.227 Impressions: Chest X-Ray 02/04/17 06:41 IMPRESSION: NO ACUTE RADIOGRAPHIC FINDING IN THE CHEST. Chest/Abdomen CTA 02/05/17 09:22 IMPRESSION: 1. No acute or suspicious thoracic findings. No pulmonary embolus or gross aortic aneurysm or dissection. 2. Cholelithiasis. Assessment & Plan - Diagnosis (1) NSTEMI (non-ST elevated myocardial infarction) Is this a current diagnosis for this admission?: Yes (2) Chest pain Qualifiers: Chest pain type: unspecified Qualified Code(s): R07.9 - Chest pain, unspecified Is this a current diagnosis for this admission?: Yes (3) COPD (chronic obstructive pulmonary disease) Qualifiers: COPD type: unspecified COPD Qualified Code(s): J44.9 - Chronic obstructive pulmonary disease, unspecified Is this a current diagnosis for this admission?: Yes (4) Tobacco abuse Is this a current diagnosis for this admission?: Yes (5) Gastroesophageal reflux Qualifiers: Esophagitis presence: esophagitis presence not specified Qualified Code(s): K21.9 - Gastro-esophageal reflux disease without esophagitis Is this a current diagnosis for this admission?: Yes - Notes Notes: Non-STEMI: Patient has ruled in for non-STEMI, disease based on chest pain and troponin I elevation. Please see discussion below and the chest discomfort. Patient being treated with medical management and a stress test has been scheduled for tomorrow. 2D echo results reviewed with the patient which shows normal LVEF. No significant valvular stenosis or regurgitations were noted. Chest pain: Cardiac enzymes has come back suggestive in the non-STEMI range. Patient has been relatively stable. Last night I did discuss transfer to tertiary care for early invasive strategy but patient was also given option of stabilization and further risk stratification with stress testing. Patient preferred to chose the later option. Patient was informed that should she have recurrent chest pain, significant enzyme elevation, significant dysrhythmia or CHF then she would need to be transferred urgently. Patient had repeated EKGs which has remained relatively unremarkable. Patient did have a cardiac CTA which shows coronary calcification but no evidence of dissection or pulmonary embolism. COPD patient encouraged to avoid first-hand. Patient also advised to avoid environmental pollutants. Patient to use bronchodilator and steroid therapy as has been prescribed by PMD and other specialists. Tobacco abuse: Patient has history of chronic smoking. Discussed detrimental effect of chronic smoking including worsening COPD, increased risk of cardiovascular events, cerebrovascular events, cancer and multiple other side effects of smoking. The benefits of smoking cessation discussed. Patient unwilling to give acommitment to quit. Patient informed that we'll be happy to help should pt decide to quit. Continue nicotine patch while inpatient. Patient seems to have this condition. Gastroesophageal reflux: Weigh loss and treatment of sleep apnea if present and when treated tends to help this condition. Recommend small meals, avoid eating within 3 hours of bedtime, avoid other food substances which had led to reflux in the past. Proton pump inhibitors and other antacids are recommended. - Time Time with patient: Greater than 35 minutes - CODE STATUS was discussed, patient remains full code. Surrogate decision-maker patient's neighbor. Multiple medical problems were addressed. More than 50% of the time spent coordinating care, discussing management plans with involved caregivers. Management plans discussed with involved personnels. Medical decision making was of moderate to high complexity, patient's has multiple comorbidities. Medications reviewed and adjusted accordingly: Yes
[2017-02-05] MEDS: ONDANSETRON HCL INJ/PF 4 MG/2 ML SDV IV PRN (15:21)
--- NOTE | 2017-02-05 17:25 | EKG REPORT ---
SEVERITY:- BORDERLINE ECG - SINUS RHYTHM BORDERLINE R WAVE PROGRESSION, ANTERIOR LEADS : Confirmed by: Arlene Mendez MD 05-Feb-2017 17:24:50
--- NOTE | 2017-02-05 17:26 | EKG REPORT ---
SEVERITY:- NORMAL ECG - SINUS RHYTHM : Confirmed by: Arlene Mendez MD 05-Feb-2017 17:26:11
[2017-02-05] MEDS: ATORVASTATIN CALCIUM 80 MG TABLET PO SCH (21:05)
[2017-02-05] MEDS ORDERED: OXYCODONE HCL IR 5 MG TABLET PO ONE (23:45)
[2017-02-06] MEDS: LANSOPRAZOLE 30 MG TAB.RAP.DR PO SCH ×2 (05:06→18:52)
[2017-02-06] MEDS: ACETAMINOPHEN 325 MG TABLET PO PRN (05:07)
[2017-02-06 05:21] LABS: HEMATOCRIT 38.4 % (36.0-47.0); HEMOGLOBIN 13.3 g/dL (12.0-15.5); HGB HCT DIFFERENCE 1.5; MEAN CORPUSCULAR HEMOGLOBIN 31.6 pg (27.0-33.4); MEAN CORPUSCULAR HGB CONC 34.6 g/dL (32.0-36.0); MEAN CORPUSCULAR VOLUME 91 fl (80-97); RED CELL DISTRIBUTION WIDTH 12.8 % (11.5-14.0); WHITE BLOOD COUNT 7.4 10^3/uL (4.0-10.5)
[2017-02-06] MEDS ORDERED: KETOROLAC TROMETHAMINE INJ/PF 30 MG/1 ML SDV IV ONE ×2 (07:34→08:30)
[2017-02-06] MEDS: ONDANSETRON HCL INJ/PF 4 MG/2 ML SDV IV PRN (07:42)
[2017-02-06] MEDS ORDERED: REGADENOSON INJ 0.4 MG/5 ML DISP.SYRIN IV ONE (10:29)
[2017-02-06] MEDS ORDERED: AMINOPHYLLINE INJ/PF 250 MG/10 ML SDV IV ONE (10:29)
[2017-02-06] MEDS: ENOXAPARIN SODIUM INJ 100 MG/1 ML DISP.SYRIN SUBCUT SCH ×2 (12:10→22:34)
[2017-02-06] MEDS: CLOPIDOGREL BISULFATE 75 MG TABLET PO SCH (12:10)
[2017-02-06] MEDS: METOPROLOL SUCCINATE 25 MG TAB.SR.24H PO SCH ×2 (12:10→22:43)
--- NOTE | 2017-02-06 13:06 | DRAGON STRESS TEST REPORT ---
INTRAVENOUS LEXISCAN CARDIOLITE STRESS TEST USING SINGLE PHOTON EMMISION COMPUTERIZED TOMOGRAPHIC. DATE OF PROCEDURE: February 06, 2017 INDICATION : Chest pain, abnormal troponin I elevation CARDIAC RISK FACTORS: Tobacco abuse, hypertension, dyslipidemia RESTING EKG: Sinus rhythm without any significant baseline ST-T wave changes STRESS EKG: No significant changes noted with LexiScan bolus REASON FOR TERMINATION: Protocol. PROCEDURE REPORT: Baseline heart rate 71 beats per minute with blood pressure of 152/67. Patient had no significant complaints. Heart rate at 2 minutes post bolus 85 with a blood pressure of 152/68. 3 minutes post bolus heart rate 73 with blood pressure of 153/78. No significant EKG changes were noted. Patient had no significant complaints during the procedure or postprocedure. Patient injected with Aminophyllin 75 mg at 3 minutes or later after Lexiscan bolus. CONCLUSIONS: Normal EKG and hemodynamic response to IV LexiScan. NUCLEAR DATA: At rest the patient was given 14.91 millicuries of technetium 99 sestamibi injected intravenously. As per protocol rest gated SPECT images were obtained. Subsequently the patient was given intravenous LexiScan at a dose of 0.4 mg in 5 mL intravenously, followed by flush with normal saline. Subsequently the stress dose of 44.1 millicuries of technetium 99 sestamibi was injected intravenously. As per protocol stress gated images were obtained. NUCLEAR INTERPRETATION: Both raw and processed data were used for interpretation. Visual, qualitative, computer-generated quantitative data was used. There was good myocardial uptake of technetium compound. Motion artifact and soft tissue attenuations were noted. Increased visceral uptake was noted. No definitive areas of transient perfusion defect noted except for a small decreased uptake noted in the distal anterior wall and distal anterior septum but without any corresponding wall motion abnormalities on gated imaging. Probable mild ischemia but could well be related to differences in breast attenuation artifact. No definitive areas of fixed perfusion defect or scars noted. EKG gated imaging showed LV EF at 69% %, rest and stress gated EF similar visually. T. I D. ratio was 1.11. Lung heart ratio noted to be within normal limits 0.35. No significant extracardiac and abnormal radiotracer activities were noted. RV free wall uptake was noted to be WNL. IMPRESSION: Also refer to comments under nuclear interpretation. Also test results needs to be interpreted in the context of pretest probability. 1. Probable mild distal anterior wall and distal anterior septal ischemia, however no corresponding wall motion abnormalities noted on gated imaging, possibly could also be related to differences in breast attenuation artifact. Clinical correlation requested. SDS score of 2. 2. There is no definitive scintigraphic evidence of myocardial infarction/scar. 3. EKG gated imaging shows left ejection fraction of approximately 69 %, without any wall motion abnormalities. 4. Clinical correlation requested as occasionally single vessel disease or balanced ischemia could be missed. In approximately 10% of the cases Lexiscan may not cause adequate vasodilatory stress. RECOMMENDATIONS: Aggressive risk factor modification, medical therapy. Consider heart catheterization if significant symptoms uncontrolled on medical management. Clinical correlation with echocardiogram derived ejection fraction. Inability to exercise by itself can lead to increased cardiovascular event risks. Consider cardiology consultation and or follow-up if clinically indicated. I AM AVAILABLE FOR CARDIOLOGY CONSULTATION AND FOLLOWUP IF REQUESTED BY PMSayra Mckeon M.D., JEAN CARLOS Optical Instrument Inspector retail wireless sales consultant, Board certified in cardiovascular diseases, Nuclear cardiology, Echocardiography Cardiac CT and cardiac MRI Ph. [phone] ARMAND
--- NOTE | 2017-02-06 13:13 | PDOC PROGRESS REPORT ---
Subjective Progress Note for:: 02/06/17 Subjective:: Patient seems to be doing better with gradual improvement. Patient denied since last night any recurrence of chest arm or neck discomfort. Patient denying any PND, orthopnea. Patient denied any sustained palpitations, dizziness, syncope, near syncope. Patient denying any fever chills. Patient denying any other significant discomfort. Nuclear stress test procedure was explained to the patient in detail. Risks benefits were discussed and informed consent was obtained. Alternatives were discussed. Nuclear stress test procedure was therefore scheduled. Patient agreeable to proceed with the procedure. Patient is maintaining sinus rhythm. Patient has ambulated to the bathroom without any difficulty. Patient was encouraged to ambulate in the hallway today and report any chest discomfort if she has. Review of systems: Rest review of systems negative. Medications: Medications have been reviewed. Physical Exam Vital Signs: Temp Pulse Resp BP Pulse Ox 98.0 F 67 17 138/55 H 95 02/06/17 12:00 02/06/17 12:00 02/06/17 12:00 02/06/17 12:00 02/06/17 12:00 Intake & Output 02/05/17 02/06/17 02/07/17 06:59 06:59 06:59 Intake Total 1990 Output Total 2475 Balance -485 Weight 97.7 kg Exam: GENERAL: well-nourished and in no acute distress. Alert and oriented x3 HEAD: Atraumatic, normocephalic. EYES: Pupils equal round and reactive to light, extraocular movements intact, sclera anicteric, conjunctiva are normal. ENT: TMs normal, nares patent, oropharynx clear without exudates. Moist mucous membranes. No oral ulcerations or bleeding gums noted NECK: supple without lymphadenopathy. Trachea is central. No cervical or axillary lymphadenopathy noted. Carotids are 2+, JVD WNL LUNGS: Respiration seems nonlabored, no significant accessory muscle action noted. Breath sounds clear to auscultation bilaterally and equal noted. No wheezes rales or rhonchi noted. No significant dullness noted on percussion. CHEST: Palpation of the chest wall shows no significant chest wall tenderness. No other significant abnormalities noted. 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 ABDOMEN: Soft, no significant tenderness appreciated, normoactive bowel sounds. No guarding, no rebound. No rigidity noted . No masses appreciated. EXTREMITIES: Pedal pulses are 1-2+, no calf tenderness noted. No clubbing or cyanosis.trace to 1+ pedal edema noted NEUROLOGICAL: Focused neurological exam showed no significant neurologic deficit. Normal speech, no focal weakness appreciated. PSYCH: Normal mood, normal affect. Judgment and insight within normal limits. SKIN: No significant ecchymosis, rash, ulcerations or signs of pruritus noted. MUSCULOSKELETAL EXAM: No significant joint swelling noted. Results Laboratory Results: 02/06/17 04:35 02/06/17 04:35 WBC 7.4 RBC 4.20 Hgb 13.3 Hct 38.4 MCV 91 MCH 31.6 MCHC 34.6 RDW 12.8 Plt Count 225 02/06/17 04:35 Troponin I 0.106 EKG Comments: Telemetry strips reviewed. Sinus rhythm without any significant tachycardia or bradycardia arrhythmias were noted. Impressions: Chest X-Ray 02/04/17 06:41 IMPRESSION: NO ACUTE RADIOGRAPHIC FINDING IN THE CHEST. Chest/Abdomen CTA 02/05/17 09:22 IMPRESSION: 1. No acute or suspicious thoracic findings. No pulmonary embolus or gross aortic aneurysm or dissection. 2. Cholelithiasis. Assessment & Plan - Diagnosis (1) NSTEMI (non-ST elevated myocardial infarction) Is this a current diagnosis for this admission?: Yes (2) Chest pain Qualifiers: Chest pain type: unspecified Qualified Code(s): R07.9 - Chest pain, unspecified Is this a current diagnosis for this admission?: Yes (3) COPD (chronic obstructive pulmonary disease) Qualifiers: COPD type: unspecified COPD Qualified Code(s): J44.9 - Chronic obstructive pulmonary disease, unspecified Is this a current diagnosis for this admission?: Yes (4) Tobacco abuse Is this a current diagnosis for this admission?: Yes (5) Gastroesophageal reflux Qualifiers: Esophagitis presence: esophagitis presence not specified Qualified Code(s): K21.9 - Gastro-esophageal reflux disease without esophagitis Is this a current diagnosis for this admission?: Yes - Notes Notes: Non-STEMI: Patient has ruled in for non-STEMI, disease based on chest pain and troponin I elevation. 2D echo results reviewed with the patient which shows normal LVEF. No significant valvular stenosis or regurgitations were noted. Nuclear stress test showed probable mild distal anterior wall, distal anterior septum ischemia versus differences in breast attenuation artifact. No high risk features were noted such as abnormal transient ischemic dilatation or increased lung uptake. These findings were discussed with the patient. Patient was told that if she has any recurrent chest pain then she should be transferred to tertiary care for heart catheterization however a case for medical management could also be made. Patient was encouraged to ambulate and report any chest pain to the nurses. Will start patient on small dose of BECKY inhibitor. Chest pain: So far no recurrences in the last 24 hours. Patient placed on increased dose of Ranexa at 1000 mg p.o. twice daily. Patient could be placed back on Imdur since she is now allowed to take caffeine. COPD patient encouraged to avoid first-hand. Patient also advised to avoid environmental pollutants. Patient to use bronchodilator and steroid therapy as has been prescribed by PMD and other specialists. Tobacco abuse: Patient has history of chronic smoking. Discussed detrimental effect of chronic smoking including worsening COPD, increased risk of cardiovascular events, cerebrovascular events, cancer and multiple other side effects of smoking. The benefits of smoking cessation discussed. Patient unwilling to give acommitment to quit. Patient informed that we'll be happy to help should pt decide to quit. Continue nicotine patch while inpatient. Patient seems to have this condition. Gastroesophageal reflux: Weigh loss and treatment of sleep apnea if present and when treated tends to help this condition. Recommend small meals, avoid eating within 3 hours of bedtime, avoid other food substances which had led to reflux in the p - Time Time with patient: Greater than 35 minutes - CODE STATUS was discussed, patient remains full code. Surrogate decision-maker unchanged. Multiple medical problems were addressed. More than 50% of the time spent coordinating care, discussing management plans with involved caregivers. Management plans discussed with involved personnels. Medical decision making was of moderate to high complexity, patient's has multiple comorbidities. Medications reviewed and adjusted accordingly: Yes
--- NOTE | 2017-02-06 13:29 | PDOC PROGRESS REPORT ---
Subjective Progress Note for:: 02/06/17 Subjective:: reason for visit: chest pain, likely NSTEMI, tob abuse hospital course: presents to the ED from home with sudden onset of substernal constant chest pain until given SL NTG, described as a "heaviness in the center of my chest" with asct'ed left arm "weirdness like a tingling but stranger" and global dull aching constant nonradiating CRUZ and mild, transient SOA. she denies nausea, vomiting, vision or hearing changes, orthopnea, PND, weight gain or loss, cough with phlegm, fevers/chills, swelling of her feet or ankles, recent travel, sedentary lifestyle, heartburn or GERD. She's had several similar episodes over the last few months but "never this intense" thus prompting visit to the ED. She had a negative stress test "many years ago" for unrelated symptoms so no prior cardiac disease she is aware of, takes no meds for chronic conditions, has no idea of her cholesterol levels, doesn't take prophylactic ASA and no first degree relative with CAD. Her risk factors include elevated BMI and heavy tobacco use. eval in the ED shows nonspecific, nondiagnostic ST flattening, we have no old for comparison, and indeterminate initial troponin that fails to reach the cut off for NSTEMI by our scale giving her a MARS score of 2. we were asked to admit for further eval and management. repeat troponin trended up and beyond upper limit of normal and has plateaued and trending down while her symptoms remain vague and waxing and waning but no ousmane chest pain, palpitations, orthopnea, PND. her left arm "funny feeling" also seems to come and go and is currentlly resolved. dr tapia ordered echo and CTA chest which show normal EF, 2/4 DD, mild conc LVH, mild LAE, trace MR and mild stenosis, mild aortic stenosis and ct chest shows mild apical emphysema , coronary calcifications but no obvious dissection or aneurysm and incidental note made of cholelithiasis and adrenal adenoma. started empiric treatment for NSTEMI with full dose lovenox, plavix and high dose statin. denies chest pain, palpitations, n/v/d, arm/jaw pain. she continues to complain of global, throbbing, constant but waxing/waning, nonradiating without exac/alleviating factors. ROS: all systems reviewed, as noted, remaining systems negative Physical Exam Vital Signs: Temp Pulse Resp BP Pulse Ox 98.0 F 67 17 138/55 H 95 02/06/17 12:00 02/06/17 12:00 02/06/17 12:00 02/06/17 12:00 02/06/17 12:00 Intake & Output 02/05/17 02/06/17 02/07/17 06:59 06:59 06:59 Intake Total 1989 Output Total 2475 Balance -485 Weight 97.7 kg General appearance: PRESENT: no acute distress, obese, well-developed, well- nourished Head exam: PRESENT: atraumatic, normocephalic Eye exam: PRESENT: EOMI. ABSENT: conjunctival injection, scleral icterus Mouth exam: PRESENT: moist, neck supple Neck exam: PRESENT: full ROM. ABSENT: JVD, lymphadenopathy Respiratory exam: PRESENT: clear to auscultation sohan. ABSENT: accessory muscle use Cardiovascular exam: PRESENT: RRR. ABSENT: systolic murmur Pulses: PRESENT: normal radial pulses, normal dorsalis pedis pul Vascular exam: PRESENT: normal capillary refill GI/Abdominal exam: PRESENT: normal bowel sounds, soft. ABSENT: tenderness Extremities exam: ABSENT: calf tenderness, pedal edema Musculoskeletal exam: PRESENT: ambulatory, full ROM Neurological exam: PRESENT: alert, awake, oriented to person, oriented to place , oriented to time, oriented to situation Psychiatric exam: PRESENT: appropriate affect, normal mood Skin exam: PRESENT: dry, warm. ABSENT: rash Results Laboratory Results: 02/06/17 04:35 02/06/17 04:35 WBC 7.4 RBC 4.20 Hgb 13.3 Hct 38.4 MCV 91 MCH 31.6 MCHC 34.6 RDW 12.8 Plt Count 225 02/06/17 04:35 Troponin I 0.106 Assessment & Plan - Diagnosis (1) Headache Qualifiers: Headache type: unspecified Headache chronicity pattern: acute headache Intractability: intractable Qualified Code(s): R51 - Headache Is this a current diagnosis for this admission?: YesPlan: unclear etiology but likely multifactorial due to caffeine withdrawal, tobacco withdrawal and nitro. will d/c the nitro and monitor for response. if no better, may need to get advanced imaging. (2) NSTEMI (non-ST elevated myocardial infarction) Is this a current diagnosis for this admission?: YesPlan: stress test today with her troponin coming down, per dr tapia. continue lovenox , asa, statin, betablocker as her BP will tolerate but stop the NTG due to CRUZ. (3) Chest pain Qualifiers: Chest pain type: unspecified Qualified Code(s): R07.9 - Chest pain, unspecified Is this a current diagnosis for this admission?: Yes (4) Tobacco abuse Is this a current diagnosis for this admission?: Yes (5) Hyperlipidemia Is this a current diagnosis for this admission?: Yes (6) Cholelithiasis Qualifiers: Cholelithiasis location: gallbladder Cholecystitis acuity: chronic Biliary obstruction: without biliary obstruction Is this a current diagnosis for this admission?: Yes (7) Adrenal adenoma Qualifiers: Laterality: right Qualified Code(s): D35.01 - Benign neoplasm of right adrenal gland Is this a current diagnosis for this admission?: Yes (8) COPD (chronic obstructive pulmonary disease) Qualifiers: COPD type: unspecified COPD Qualified Code(s): J44.9 - Chronic obstructive pulmonary disease, unspecified Is this a current diagnosis for this admission?: Yes (9) Gastroesophageal reflux Qualifiers: Esophagitis presence: esophagitis presence not specified Qualified Code(s): K21.9 - Gastro-esophageal reflux disease without esophagitis Is this a current diagnosis for this admission?: Yes - Time Time Spent with patient: 25-34 minutes Medications reviewed and adjusted accordingly: Yes
[2017-02-06] MEDS ORDERED: RAMIPRIL 1.25 MG CAPSULE PO ONE (14:00)
--- NOTE | 2017-02-06 16:24 | RADIOLOGY REPORT (SQ) ---
EXAM DESCRIPTION: MRI HEAD WITHOUT COMPLETED DATE/TIME: 02/06/2017 4:13 pm REASON FOR STUDY: acute neurologic syndrome COMPARISON: None. TECHNIQUE: Multiplanar imaging includes non-contrasted T1, T2, FLAIR, and Diffusion with ADC map seq uences. Images stored on PACS. LIMITATIONS: None. FINDINGS: ANATOMY: No anomalies. Normal vascular flow voids. Pituitary fossa normal. CSF SPACES: Normal in size and contour. No hemorrhage. CEREBRUM: A few high-signal intensity lesions scattered throughout the white matter on FLAIR imaging with distribution suggesting chronic micro-vascular ischemic change. Sulci and gyri normal in size a nd contour. No evidence of hemorrhage, mass or extraaxial fluid collection. POSTERIOR FOSSA: No signal alteration. No hemorrhage. No edema, masses or mass effect. Internal oksana tory canals, cerebello-pontine angles, mastoids normal. DIFFUSION: Negative for acute or sub-acute infarction. ORBITS: No masses. Globes normal. PARANASAL SINUSES: No fluid levels. Mucosa normal. OTHER: No other significant finding. IMPRESSION: MINIMAL MICROVASCULAR ISCHEMIC CHANGE. OTHERWISE NORMAL STUDY. EVIDENCE OF ACUTE STROKE: NO. TECHNICAL DOCUMENTATION: JOB ID: [id number] [employer]- All Rights Reserved
[2017-02-06 18:26] LABS: APPEARANCE,URINE SLIGHTLY-CLOUDY; BILIRUBIN,URINE NEGATIVE (NEGATIVE); GLUCOSE, URINE NEGATIVE (NEGATIVE); KETONES,URINE NEGATIVE (NEGATIVE); LEUKOCYTE ESTERASE,URINE NEGATIVE (NEGATIVE); NITRITE,URINE NEGATIVE (NEGATIVE); PROTEIN,URINE NEGATIVE (NEGATIVE); URINE SPECIFIC GRAVITY 1.008; UROBILINOGEN,URINE NEGATIVE mg/dL (<2.0)
[2017-02-06] MEDS ORDERED: RANOLAZINE 500 MG TAB.SR.12H PO SCH (22:00)
[2017-02-06] MEDS: ATORVASTATIN CALCIUM 80 MG TABLET PO SCH (22:34)
[2017-02-07] MEDS: ACETAMINOPHEN 325 MG TABLET PO PRN (05:01)
[2017-02-07] MEDS: LANSOPRAZOLE 30 MG TAB.RAP.DR PO SCH (05:02)
[2017-02-07 09:23] VITALS: BP 112/57
[2017-02-07] MEDS ORDERED: RAMIPRIL 1.25 MG CAPSULE PO SCH (10:00)
[2017-02-07] MEDS ORDERED: ASPIRIN 81 MG TABLET, CHEWABLE PO SCH (10:00)
--- NOTE | 2017-02-07 13:13 | PDOC PROGRESS REPORT ---
Subjective Progress Note for:: 02/07/17 Subjective:: Patient seems to be doing better with gradual improvement. Patient denied any recurrence of chest arm or neck discomfort. Patient denying any PND, orthopnea. Patient denied any sustained palpitations, dizziness, syncope, near syncope. Patient denying any fever chills. Patient denying any other significant discomfort. Nuclear stress test results were again reviewed with the patient. Patient did ambulate in the hallway and did fine. Patient is being discharged today with close cardiology follow-up. Patient advised to return to the ER in case of recurrence of chest pain. Review of systems: Rest review of systems negative. Medications: Medications have been reviewed. Physical Exam Vital Signs: Temp Pulse Resp BP Pulse Ox 97.8 F 58 L 16 112/57 L 95 02/07/17 09:18 02/07/17 09:18 02/07/17 09:18 02/07/17 09:18 02/07/17 09:18 Intake & Output 02/06/17 02/07/17 02/08/17 06:59 06:59 06:59 Intake Total 1990 320 Output Total 2475 1400 Balance -485 -1080 Weight 97.7 kg 99.5 kg Exam: GENERAL: well-nourished and in no acute distress. Alert and oriented x3 HEAD: Atraumatic, normocephalic. EYES: Pupils equal round and reactive to light, extraocular movements intact, sclera anicteric, conjunctiva are normal. ENT: TMs normal, nares patent, oropharynx clear without exudates. Moist mucous membranes. No oral ulcerations or bleeding gums noted NECK: supple without lymphadenopathy. Trachea is central. No cervical or axillary lymphadenopathy noted. Carotids are 2+, JVD WNL LUNGS: Respiration seems nonlabored, no significant accessory muscle action noted. Breath sounds clear to auscultation bilaterally and equal noted. No wheezes rales or rhonchi noted. No significant dullness noted on percussion. CHEST: Palpation of the chest wall shows no significant chest wall tenderness. No other significant abnormalities noted. HEART: [place] [employer], No PSH, 1/6 LEANDRO aortic area, 1/6 vinson systolic murmur mitral area, no rubs, no gallops. ABDOMEN: Soft, no significant tenderness appreciated, normoactive bowel sounds. No guarding, no rebound. No rigidity noted . No masses appreciated. EXTREMITIES: Pedal pulses are 1-2+, no calf tenderness noted. No clubbing or cyanosis.trace to 1+ pedal edema noted NEUROLOGICAL: Focused neurological exam showed no significant neurologic deficit. Normal speech, no focal weakness appreciated. PSYCH: Normal mood, normal affect. Judgment and insight within normal limits. SKIN: No significant ecchymosis, rash, ulcerations or signs of pruritus noted. MUSCULOSKELETAL EXAM: No significant joint swelling noted. Results Laboratory Results: 02/06/17 04:35 02/06/17 18:05 Urine Color YELLOW Urine Appearance SLIGHTLY-CLOUDY Urine pH 5.0 Ur Specific [place] 1.008 Urine Protein NEGATIVE Urine Glucose (UA) NEGATIVE Urine Ketones NEGATIVE Urine Blood NEGATIVE Urine Nitrite NEGATIVE Ur Leukocyte Esterase NEGATIVE Urine WBC (Auto) 1 Urine RBC (Auto) 0 02/06/17 04:35 Troponin I 0.106 Impressions: Chest X-Ray 02/04/17 06:41 IMPRESSION: NO ACUTE RADIOGRAPHIC FINDING IN THE CHEST. Chest/Abdomen CTA 02/05/17 09:22 IMPRESSION: 1. No acute or suspicious thoracic findings. No pulmonary embolus or gross aortic aneurysm or dissection. 2. Cholelithiasis. Head MRI 02/06/17 14:34 IMPRESSION: MINIMAL MICROVASCULAR ISCHEMIC CHANGE. OTHERWISE NORMAL STUDY. EVIDENCE OF ACUTE STROKE: NO. Assessment & Plan - Diagnosis (1) NSTEMI (non-ST elevated myocardial infarction) Is this a current diagnosis for this admission?: Yes (2) Chest pain Qualifiers: Chest pain type: unspecified Qualified Code(s): R07.9 - Chest pain, unspecified Is this a current diagnosis for this admission?: Yes (3) COPD (chronic obstructive pulmonary disease) Qualifiers: COPD type: unspecified COPD Qualified Code(s): J44.9 - Chronic obstructive pulmonary disease, unspecified Is this a current diagnosis for this admission?: Yes (4) Tobacco abuse Is this a current diagnosis for this admission?: Yes (5) Gastroesophageal reflux Qualifiers: Esophagitis presence: esophagitis presence not specified Qualified Code(s): K21.9 - Gastro-esophageal reflux disease without esophagitis Is this a current diagnosis for this admission?: Yes - Notes Notes: Non-STEMI: Patient has ruled in for non-STEMI, disease based on chest pain and troponin I elevation. 2D echo results reviewed with the patient which shows normal LVEF. No significant valvular stenosis or regurgitations were noted. Nuclear stress test showed probable mild distal anterior wall, distal anterior septum ischemia versus differences in breast attenuation artifact. No high risk features were noted such as abnormal transient ischemic dilatation or increased lung uptake. These findings were discussed with the patient. Patient did fine with medical management. Patient to report any recurrence of chest pain. Patient being discharged home by the hospitalist. Patient to follow-up closely with microelectronics assembler of her choice. I did offer my services. Chest pain: So far no recurrences in the last 48 hours. Patient was placed on increased dose of Ranexa at 1000 mg p.o. twice daily. Patient could be placed back on Imdur since she is now allowed to take caffeine. COPD patient encouraged to avoid first-hand. Patient also advised to avoid environmental pollutants. Patient to use bronchodilator and steroid therapy as has been prescribed by PMD and other specialists. Tobacco abuse: Patient has history of chronic smoking. Discussed detrimental effect of chronic smoking including worsening COPD, increased risk of cardiovascular events, cerebrovascular events, cancer and multiple other side effects of smoking. The benefits of smoking cessation discussed. Patient unwilling to give acommitment to quit. Patient informed that we'll be happy to help should pt decide to quit. Continue nicotine patch while inpatient. Patient seems to have this condition. Gastroesophageal reflux: Weigh loss and treatment of sleep apnea if present and when treated tends to help this condition. Recommend small meals, avoid eating within 3 hours of bedtime, avoid other food substances which had led to reflux in the past - Time Time with patient: 15-25 minutes - CODE STATUS was discussed, patient remains full code. Surrogate decision-maker unchanged. Multiple medical problems were addressed. More than 50% of the time spent coordinating care, discussing management plans with involved caregivers. Management plans discussed with involved personnels. Medical decision making was of moderate to high complexity , patient's has multiple comorbidities. Medications reviewed and adjusted accordingly: Yes
--- NOTE | 2017-02-07 13:54 | PDOC DISCHARGE SUMMARY ---
General - Admit/Disc Date/PCP Admission Date/Primary Care Provider: 02/05/17 12:13 Discharge Date: 02/07/17 - Discharge Diagnosis (1) Headache Is this a current diagnosis for this admission?: YesSummary: resolved (2) NSTEMI (non-ST elevated myocardial infarction) Is this a current diagnosis for this admission?: YesSummary: no evidence of occlusion on stress test; continue ASA, statin, betablocker, low dose ACEi and f/u with dr tapia (3) Chest pain Is this a current diagnosis for this admission?: YesSummary: resolved (4) Tobacco abuse Is this a current diagnosis for this admission?: YesSummary: cessation counseling of 10mins offered prior to d/c, she refused nicotine replacement and isn't ready to quit just yet though she claims to want to "drastically" cut back (5) Hyperlipidemia Is this a current diagnosis for this admission?: YesSummary: high dose statin (6) Cholelithiasis Is this a current diagnosis for this admission?: YesSummary: f/u GI and/or surgery as needed for symptoms of nausea/vomiting, change in stools, RUQ pain after eating, high fevers/chills or report to ED for evaluation. no evidence to support active disease at this time and not good candidate for elective surgery until her CAD adequately treated (7) Adrenal adenoma Is this a current diagnosis for this admission?: Yes (8) COPD (chronic obstructive pulmonary disease) Is this a current diagnosis for this admission?: Yes (9) Gastroesophageal reflux Is this a current diagnosis for this admission?: Yes - Additional Information Resuscitation Status: Full Code Discharge Diet: Cardiac Discharge Activity: Activity As Tolerated Home Medications: Aspirin [Aspirin 81 mg Chewable Tablet] 81 mg PO DAILY tab.chew 02/07/17 Atorvastatin Calcium [Lipitor 80 mg Tablet] 80 mg PO QHS #30 tablet 02/07/17 Metoprolol Succinate [Toprol Xl 25 mg Tab.sr] 25 mg PO Q12 #60 tab.sr.24h Nitroglycerin [Nitrostat 0.4 mg (1/150 Gr) Tabs 25/Bottle] 1 tab SL Q5MP PRN #1 bottle 02/07/17 Ramipril [Altace 1.25 mg Capsule] 1.25 mg PO DAILY #30 capsule 02/07/17 Ranolazine [Ranexa 500 mg Tab.sr] 1,000 mg PO Q12 #60 tab.sr.12h 02/07/17 History of Present Illness Patient complains of: chest pressure History of Present Illness: presents to the ED from home with sudden onset of substernal constant chest pain until given SL NTG, described as a "heaviness in the center of my chest" with asct'ed left arm "weirdness like a tingling but stranger" and global dull aching constant nonradiating CRUZ and mild, transient SOA. Hospital Course Hospital Course: she denies nausea, vomiting, vision or hearing changes, orthopnea, PND, weight gain or loss, cough with phlegm, fevers/chills, swelling of her feet or ankles, recent travel, sedentary lifestyle, heartburn or GERD. She's had several similar episodes over the last few months but "never this intense" thus prompting visit to the ED. She had a negative stress test "many years ago" for unrelated symptoms so no prior cardiac disease she is aware of, takes no meds for chronic conditions, has no idea of her cholesterol levels, doesn't take prophylactic ASA and no first degree relative with CAD. Her risk factors include elevated BMI and heavy tobacco use. eval in the ED shows nonspecific, nondiagnostic ST flattening, we have no old for comparison, and indeterminate initial troponin that fails to reach the cut off for NSTEMI by our scale giving her a MARS score of 2. we were asked to admit for further eval and management. repeat troponin trended up and beyond upper limit of normal and has plateaued and trending down while her symptoms remain vague and waxing and waning but no ousmane chest pain, palpitations, orthopnea, PND. her left arm "funny feeling" also seems to come and go and is currentlly resolved. dr tapia ordered echo and CTA chest which show normal EF, 2/4 DD, mild conc LVH, mild LAE, trace MR and mild stenosis, mild aortic stenosis and ct chest shows mild apical emphysema , coronary calcifications but no obvious dissection or aneurysm and incidental note made of cholelithiasis and adrenal adenoma. started empiric treatment for NSTEMI with full dose lovenox, plavix and high dose statin. denies chest pain, palpitations, n/v/d, arm/jaw pain. she continues to complain of global, throbbing, constant but waxing/waning, nonradiating without exac/alleviating factors. she was admitted and ruled in for NSTEMI with mildly elevated troponins and no ecg changes, stress test performed and shows no definitive radiographic evidence of ischemia. she was treated with fulll dose lovenox, asa, statin, betablocker and low dose ACEi, her troponins trended down. she was offered transfer to tertiary center for evaluation for heart cath but refused, choosing aggressive medical management instead and in psite of understanding risks of AMI , sudden cardiac , heart failure and cardiomyopapthy, cardiac arrhythmias. she has tolerated the treatment well, counseled on signs and symptoms to watch for and instructed to return to the ED immediately for recurrence or worsening. she is stable for dc home at this time. Physical Exam Vital Signs: Temp Pulse Resp BP Pulse Ox 97.8 F 58 L 16 112/57 L 95 02/07/17 09:18 02/07/17 09:18 02/07/17 09:18 02/07/17 09:18 02/07/17 09:18 Intake & Output 02/06/17 02/07/17 02/08/17 06:59 06:59 06:59 Intake Total 1990 320 Output Total 2475 1400 Balance -485 -1080 Weight 97.7 kg 99.5 kg Results Laboratory Results: 02/06/17 04:35 02/06/17 18:05 Urine Color YELLOW Urine Appearance SLIGHTLY-CLOUDY Urine pH 5.0 Ur Specific [place] 1.008 Urine Protein NEGATIVE Urine Glucose (UA) NEGATIVE Urine Ketones NEGATIVE Urine Blood NEGATIVE Urine Nitrite NEGATIVE Ur Leukocyte Esterase NEGATIVE Urine WBC (Auto) 1 Urine RBC (Auto) 0 02/06/17 04:35 Troponin I 0.106 Impressions: Chest X-Ray 02/04/17 06:41 IMPRESSION: NO ACUTE RADIOGRAPHIC FINDING IN THE CHEST. Chest/Abdomen CTA 02/05/17 09:22 IMPRESSION: 1. No acute or suspicious thoracic findings. No pulmonary embolus or gross aortic aneurysm or dissection. 2. Cholelithiasis. Head MRI 02/06/17 14:34 IMPRESSION: MINIMAL MICROVASCULAR ISCHEMIC CHANGE. OTHERWISE NORMAL STUDY. EVIDENCE OF ACUTE STROKE: NO. Qualifiers PATEINT BEING DISCHARGED WITH ANY OF THE FOLLOWING DIAGNOSIS?: [place] VTE patient discharged on overlapping Therapy?: No Reason(s) for not prescribing Overlap Therapy:: Not indicated [place] Pt being discharged on Aspirin therapy?: Yes [place] Pt being discharged on Statins?: Yes [place] Pt discharged ACEI/ARBS?: Yes Plan Discharge Plan: continue typical Rx management with close outpt f/u with dr tapia for further eval and risk stratification, return to the ED for worsening condition. Time Spent: Greater than 30 Minutes
== END 2017-02-07 10:42 | disposition home or self-care (01) | DRG 282 ==
LOC: ER 06:25 → EH 08:44 → UNDOADMOB 08:44 → EH 09:32 → UNDOADMOB 09:32 → 4N 09:32 → EH 10:43 → 4N 10:43 → OBSVTOIN 02-05 12:13
PROVIDERS: ADMIT Internal Medicine; ATTEND Internal Medicine
DX: I21.4 Non-ST elevation (NSTEMI) myocardial infarction (principal); J44.9 Chronic obstructive pulmonary disease, unspecified; K21.9 Gastro-esophageal reflux disease without esophagitis; E78.5 Hyperlipidemia, unspecified; R51 Headache; D35.01 Benign neoplasm of right adrenal gland; F17.210 Nicotine dependence, cigarettes, uncomplicated; K80.20 Calculus of gallbladder without cholecystitis without obstruction; F17.200 Nicotine dependence, unspecified, uncomplicated; I10 Essential (primary) hypertension; Z82.49 Family history of ischemic heart disease and other diseases of the circulatory system; Z79.82 Long term (current) use of aspirin; Z82.3 Family history of stroke; Z85.41 Personal history of malignant neoplasm of cervix uteri; Z92.3 Personal history of irradiation
CPT/HCPCS: 36415; 70551; 71010; 71275; 78452; 80053; 80061; 81001; 82550; 82553; 83690; 83880; 84484; 85025; 85027; 85379; 93005; 93010; 93017; 93306; 99285; A9500; G0378; J0280; J1650; J1885; J2405; J2785; J3490; Q9969

== ENCOUNTER → 2017-02-12 | Outpatient (CLI) | payer BC ==
[2017-02-12 13:34] LABS: PROTHROMBIN TIME 13.3 SEC (11.4-15.4)
== END ==
LOC: OD 11:45
PROVIDERS: ATTEND Internal Medicine
DX: Z79.899 Other long term (current) drug therapy (principal); E78.5 Hyperlipidemia, unspecified
CPT/HCPCS: 36415; 83735; 85610; 85730

== ENCOUNTER → 2019-06-21 | Outpatient (CLI) | payer BC ==
--- NOTE | 2019-06-21 12:28 | RADIOLOGY REPORT (SQ) ---
EXAM DESCRIPTION: SHOULDER LEFT 2 OR MORE VIEWS COMPLETED DATE/TIME: 06/21/2019 10:57 am REASON FOR STUDY: ACUTE PAIN OF LEFT SHOULDER M25.512 PAIN IN LEFT SHOULDER COMPARISON: None. NUMBER OF VIEWS: Three views. TECHNIQUE: Internal rotation, external rotation, and Y view images acquired of the left shoulder. LIMITATIONS: None. FINDINGS: MINERALIZATION: Normal. BONES: No acute fracture. No worrisome bone lesions. JOINTS: No dislocation. VISUALIZED LUNGS AND RIBS: No pneumothorax. No rib fracture. SOFT TISSUES: No radiopaque foreign body. OTHER: No other significant finding. IMPRESSION: NEGATIVE STUDY OF THE LEFT SHOULDER. NO RADIOGRAPHIC EVIDENCE OF ACUTE INJURY. TECHNICAL DOCUMENTATION: JOB ID: [id number] [employer]- All Rights Reserved Reading location - IP/workstation name: [email or web address]
== END ==
LOC: OD 10:09
PROVIDERS: ATTEND Physician Assistant
DX: M25.512 Pain in left shoulder (principal)

== ENCOUNTER → 2020-04-02 | Outpatient (CLI) | payer BC ==
[2020-04-02 13:54] LABS: ABSOLUTE BASOPHILS # (AUTO) 0.1 10^3/uL (0.0-0.2); ABSOLUTE EOSINOPHILS # (AUTO) 0.2 10^3/uL (0.0-0.6); ABSOLUTE LYMPHOCYTES (AUTO) 2.2 10^3/uL (0.5-4.7); ABSOLUTE MONOCYTES (AUTO) 0.5 10^3/uL (0.1-1.4); ABSOLUTE NEUT (AUTO) 4.2 10^3/uL (1.7-8.2); BASOPHILS % (AUTO) 0.7 % (0-2); EOSINOPHILS % (AUTO) 2.3 % (0-6); HEMATOCRIT 41.2 % (36.0-47.0); HEMOGLOBIN 14.6 g/dL (12.0-15.5); LYMPHOCYTES % (AUTO) 30.7 % (13-45); MEAN CORPUSCULAR HEMOGLOBIN 31.9 pg (27.0-33.4); MEAN CORPUSCULAR HGB CONC 35.4 g/dL (32.0-36.0); MEAN CORPUSCULAR VOLUME 90 fl (80-97); MONOCYTES % (AUTO) 7.3 % (3-13); PLATELET COUNT 240 10^3/uL (150-450); RED BLOOD COUNT 4.57 10^6/uL (3.72-5.28); TOTAL CELLS COUNTED % (AUTO) 100 %; WHITE BLOOD COUNT 7.1 10^3/uL (4.0-10.5)
[2020-04-02 13:59] LABS: INTERNATIONAL RATION (INR) 0.99; PROTHROMBIN TIME 13.3 SEC (11.4-15.4)
[2020-04-02 14:00] LABS: PARTIAL THROMBOPLASTIN TIME 29.1 SEC (23.5-35.8)
[2020-04-02 14:09] LABS: ANION GAP 7 (5-19); BLOOD UREA NITROGEN 12 mg/dL (7-20); CARBON DIOXIDE 31 mmol/L (22-30); CHLORIDE 102 mmol/L (98-107); GLUCOSE 108 mg/dL (75-110); POTASSIUM 5.5 mmol/L (3.6-5.0)
== END ==
LOC: OD 12:27
PROVIDERS: ATTEND Specialist
DX: I25.118 Atherosclerotic heart disease of native coronary artery with other forms of angina pectoris (principal); Z98.61 Coronary angioplasty status; R06.00 Dyspnea, unspecified; E78.49 Other hyperlipidemia; R06.02 Shortness of breath; I34.0 Nonrheumatic mitral (valve) insufficiency; Z79.899 Other long term (current) drug therapy
CPT/HCPCS: 36415; 80051; 82565; 82947; 83735; 84520; 85025; 85610; 85730